=== PATIENT | male | born 1955 | race Two or more races ===

== ENCOUNTER 2016-12-24 10:39 | Emergency (ER) | payer OTHER ==
[~2016-12-24 10:39] MED LIST: ASPIRIN EC81 M1 PO; PRILOSEC PO
== END 2016-12-24 11:20 | disposition home or self-care (01) ==
LOC: CFTX 10:39
DX: T15.92XA Foreign body on external eye, part unspecified, left eye, initial encounter (principal); Z23 Encounter for immunization; Y92.9 Unspecified place or not applicable; X58.XXXA Exposure to other specified factors, initial encounter
CPT/HCPCS: 90471; 90715; 99283

== ENCOUNTER → 2017-01-07 | Outpatient (CLI) | payer OTHER ==
--- NOTE | ~2017-01-07 | CR63 ---
[facility] A Service of [facility] RADIOLOGY TEXT RESULTS PATIENT: MYRNA PANIAGUA LOCATION: [facility] : 53 UNIT #: [id number] AGE: [address]: SANJAY HENSON APRN SEX: M ORDER DR: [id number] [facility] [address] [facility]. [place], [place] [address] [id number] O MR#: [id number] Acc #: [id number] NAME: MYRNA PANIAGUA : 1955 SEX: M STUDY DATE/TIME: 01/07/2017 15:28 UNIT: [facility] ROOM: STUDY DESCRIPTION: CR Chest 2 View Attending Physician: Sanjay Henson Referring Physician: Sanjay Henson Ordering Physician: Sotero Henson Aprn Primary Care Physician: Caesar Hooks M.D. MEDICAL IMAGING REPORT This report is preliminary unless electronic signature is present EXAM Two-view chest 01/07/2017 INDICATIONS 61-year-old male with a cough, chronic cough for 2 months. Hypertension. TECHNIQUE/COMPARISON Two-view chest compared with 11/15/2015 FINDINGS The heart is enlarged but stable. The vascularity is unremarkable. Lung volumes are low. There is pulmonary hyperinflation but no effusion, dense consolidation or pneumothorax. Large hiatal hernia. Thoracic spondylosis. IMPRESSION 1. Cardiomegaly with low lung volumes and a large hiatal hernia. 2. Background changes of COPD. Dictated by... Juan Alberto Larose M.D. THIS IS AN ELECTRONICALLY VERIFIED REPORT Juan Alberto Larose M.D. at 01/07/2017 8:11 PM LUCY/xiomara TD: 01/07/2017 17:18 JOB #: [id number] MEDICAL IMAGING REPORT Page 1 of 1 COPY
== END | disposition home or self-care (01) ==
LOC: CRAD 15:15
DX: R05 Cough (principal); I51.7 Cardiomegaly; K44.9 Diaphragmatic hernia without obstruction or gangrene
CPT/HCPCS: 71020